=== PATIENT | female | born 1980 | race Caucasian/White ===

== ENCOUNTER 2018-10-02 21:33 | Inpatient (IN) | payer MEDICAID ==
[~2018-10-02] VITALS: Ht 157.5 cm; Wt 76.1 kg
[~2018-10-02 21:33] MED LIST: LITH300C3 PO; MULT-29 PO; VENL-67 PO
[2018-10-02 23:10] VITALS: BP 140/97
[2018-10-02] MEDS ORDERED: PNEUMOCOCCAL VACCINE POLYVALENT 0.5 ML VIAL [PPSV23] IM ONE (23:45)
[2018-10-03] VITALS (12 sets, daily range): BP systolic 112–133; BP diastolic 68–87
[2018-10-03] MEDS: LORazepam 2 MG TABLET PO PRN (00:35)
[2018-10-03] MEDS: HALOPERIDOL 5 MG TABLET PO PRN (01:13)
[2018-10-03 08:29] LABS: BASOPHILS % (AUTO) 0.3 % (0.0-2.0); EOSINOPHILS % (AUTO) 0.7 % (1.0-6.0); HEMOGLOBIN 12.7 g/dL (12.0-16.0); LYMPHOCYTES # (AUTO) 1.6 K/uL (1.0-4.8); LYMPHOCYTES % (AUTO) 22.9 % (22.0-44.0); MEAN CORPUSCULAR HEMOGLOBIN 32.9 pg (26.0-34.0); MEAN CORPUSCULAR HGB CONC 35.4 G/dL (31.0-37.0); MEAN CORPUSCULAR VOLUME 93 fL (80-100); MONOCYTES # (AUTO) 0.6 K/uL (0.1-1.0); MONOCYTES % (AUTO) 8.1 % (2.0-9.0); NEUTROPHILS # (AUTO) 4.8 K/uL (1.8-7.7); PLATELET COUNT (AUTO) 207 K/uL (150-450); RED BLOOD CELL COUNT(AUTO) 3.87 MIL/uL (4.00-5.20); RED CELL DISTRIBUTION WIDTH 14.8 % (11.5-14.5)
[2018-10-03 08:43] LABS: HEMOGLOBIN A1C 5.1 % (4.5-6.2)
[2018-10-03 09:04] LABS: ALANINE AMINOTRANSFERASE 50 U/L (12-78); ALBUMIN 2.9 g/dL (3.4-5.0); ALKALINE PHOSPHATASE 112 U/L (46-116); ANION GAP 8 mmol/L (8-16); ASPARTATE AMINOTRANSFERASE 36 U/L (15-37); BILIRUBIN,TOTAL 0.5 mg/dL (0.1-1.0); CALCIUM, TOTAL 8.9 mg/dL (8.8-10.5); CARBON DIOXIDE 29 mmol/L (22-29); CHLORIDE 107 mmol/L (98-107); CHOL/HDL RATIO 2.6 (3.9-5.7); CHOLESTEROL 137 mg/dL (131-200); CREATININE 0.85 mg/dL (0.60-1.30); GLOMERULAR FILTR. RATE CALC > 60 mL/min (>60); GLUCOSE,RANDOM 90 mg/dL (70-110); HCG,QUANTITATIVE < 1 mIU/mL (0-6); HDL CHOLESTEROL 53 mg/dL (40-60); LDL CHOL (CALC.) 57 mg/dL (0-130); POTASSIUM 3.2 mmol/L (3.5-5.1); SODIUM SERUM 144 mmol/L (136-145); THYROID STIMULATING HORMONE 1.93 uIU/mL (0.36-3.74); TOTAL PROTEIN, SERUM 5.5 g/dL (6.4-8.2); TRIGLYCERIDES 134 mg/dL (15-150); UREA NITROGEN, BLOOD 10 mg/dL (7-18)
[2018-10-03] MEDS ORDERED: ONDANSETRON HCL 4 MG TABLET PO PRN (10:00)
[2018-10-03] MEDS ORDERED: MAGNESIUM HYDROXIDE SUSPENSION 30 ML UDCUP PO PRN (10:00)
[2018-10-03] MEDS ORDERED: LOPERAMIDE HCL 2 MG CAPSULE PO PRN (10:00)
[2018-10-03] MEDS ORDERED: CloNIDine HCL 0.1 MG TABLET PO PRN (10:00)
[2018-10-03] MEDS ORDERED: PETROLATUM,WHITE 28 GM JELLY TP PRN (10:00)
[2018-10-03] MEDS ORDERED: ALBUTEROL SULFATE HFA 90 MCG/PUFF 8 GM INHALER IH PRN (10:00)
[2018-10-03] MEDS ORDERED: BENZOCAINE/MENTHOL LOZENGE MM PRN (10:00)
[2018-10-03] MEDS ORDERED: MAG HYDROX/AL HYDROX/SIMETH ES 30 ML SUSPENSION UDCUP PO PRN (10:00)
[2018-10-03] MEDS ORDERED: POTASSIUM CHLORIDE 20 MEQ ER TABLET PO ONE (10:30)
[2018-10-03] MEDS: IBUPROFEN 600 MG TABLET PO PRN ×2 (12:11→20:48)
[2018-10-03] MEDS: DULoxetine HCL 20 MG CAPSULE PO SCH (13:39)
[2018-10-03] MEDS: ZOLPIDEM TARTRATE 10 MG TABLET PO PRN (20:48)
[2018-10-03] MEDS: HALOPERIDOL 10 MG TABLET PO SCH (21:18)
[2018-10-04 00:43] VITALS: BP 127/80
[2018-10-04 01:30] VITALS: BP 132/68
[2018-10-04 05:30] VITALS: BP 140/85
[2018-10-04 08:28] VITALS: BP 136/78
[2018-10-04] MEDS: MULTIVITAMINS WITH MINERALS, THERAPEUTIC TABLET PO SCH (08:57)
[2018-10-04] MEDS: DOCUSATE SODIUM 100 MG CAPSULE PO SCH (08:57)
[2018-10-04] MEDS: OMEPRAZOLE 20 MG CAPSULE PO SCH (08:57)
[2018-10-04] MEDS: DULoxetine HCL 20 MG CAPSULE PO SCH (09:27)
[2018-10-04] MEDS: LORazepam 2 MG TABLET PO PRN (09:46)
[2018-10-04] MEDS: HALOPERIDOL 5 MG TABLET PO PRN (09:46)
[2018-10-04] MEDS ORDERED: POTASSIUM CHLORIDE 20 MEQ ER TABLET PO ONE (12:45)
[2018-10-04 16:01] VITALS: BP 142/73
[2018-10-04] MEDS: HALOPERIDOL 10 MG TABLET PO SCH (20:58)
[2018-10-05 01:10] VITALS: BP 121/91
[2018-10-05 08:10] VITALS: BP 117/63
[2018-10-05] MEDS: MULTIVITAMINS WITH MINERALS, THERAPEUTIC TABLET PO SCH (08:24)
[2018-10-05] MEDS: DOCUSATE SODIUM 100 MG CAPSULE PO SCH (08:24)
[2018-10-05] MEDS: DULoxetine HCL 20 MG CAPSULE PO SCH (08:24)
[2018-10-05] MEDS: OMEPRAZOLE 20 MG CAPSULE PO SCH (08:24)
[2018-10-05] MEDS: LORazepam 2 MG TABLET PO PRN (10:31)
[2018-10-05 16:44] VITALS: BP 125/75
[2018-10-05] MEDS: HALOPERIDOL 10 MG TABLET PO SCH (20:03)
[2018-10-06] MEDS: MULTIVITAMINS WITH MINERALS, THERAPEUTIC TABLET PO SCH (08:24)
[2018-10-06] MEDS: DULoxetine HCL 20 MG CAPSULE PO SCH (08:24)
[2018-10-06] MEDS: OMEPRAZOLE 20 MG CAPSULE PO SCH (08:24)
[2018-10-06] MEDS: DOCUSATE SODIUM 100 MG CAPSULE PO SCH (08:24)
[2018-10-06 08:35] VITALS: BP 108/74
[2018-10-06] MEDS: LORazepam 2 MG TABLET PO PRN ×2 (08:51→17:55)
[2018-10-06] MEDS: ACETAMINOPHEN 325 MG TABLET PO PRN (12:16)
[2018-10-06 16:00] VITALS: BP 114/63
[2018-10-06] MEDS: ZOLPIDEM TARTRATE 10 MG TABLET PO PRN (20:02)
[2018-10-06] MEDS: BACITRACIN 28.4 GM OINTMENT TP PRN (20:02)
[2018-10-06] MEDS: HALOPERIDOL 10 MG TABLET PO SCH (20:02)
[2018-10-06] MEDS: IBUPROFEN 600 MG TABLET PO PRN (20:54)
[2018-10-06 20:55] VITALS: BP 122/72
[2018-10-06] MEDS: CEPHALEXIN MONOHYDRATE 500 MG CAPSULE PO SCH (21:50)
[2018-10-07] VITALS (7 sets, daily range): BP systolic 113–129; BP diastolic 64–88
[2018-10-07] MEDS: BACITRACIN 28.4 GM OINTMENT TP PRN (05:03)
[2018-10-07] MEDS: IBUPROFEN 600 MG TABLET PO PRN ×3 (05:03→17:42)
[2018-10-07] MEDS: MULTIVITAMINS WITH MINERALS, THERAPEUTIC TABLET PO SCH (09:40)
[2018-10-07] MEDS: DOCUSATE SODIUM 100 MG CAPSULE PO SCH (09:40)
[2018-10-07] MEDS: DULoxetine HCL 20 MG CAPSULE PO SCH (09:40)
[2018-10-07] MEDS: OMEPRAZOLE 20 MG CAPSULE PO SCH (09:40)
[2018-10-07] MEDS: CEPHALEXIN MONOHYDRATE 500 MG CAPSULE PO SCH ×4 (10:10→20:06)
[2018-10-07] MEDS: LORazepam 2 MG TABLET PO PRN (10:38)
[2018-10-07 11:09] LABS: APPEARANCE,URINE CLOUDY (CLEAR); BILIRUBIN,URINE NEGATIVE (NEGATIVE); GLUCOSE, URINE (UA) NEGATIVE (NEGATIVE); KETONES,URINE NEGATIVE (NEGATIVE); LEUKOCYTE ESTERASE ,URINE NEGATIVE (NEGATIVE); NITRATE,URINE NEGATIVE (NEGATIVE); PH,URINE 6.5 (5.0-8.0); PROTEIN,URINE NEGATIVE (NEGATIVE); UROBILINOGEN,URINE 0.2 mg/dL (<=1.0)
[2018-10-07 11:19] LABS: BACTERIA,URINE Moderate /HPF (None Seen); CALCIUM OXALATE CRYSTALS,UR Rare /LPF (None Seen); OCCULT BLOOD,URINE SMALL (NEGATIVE); SQUAMOUS EPITHELIAL CELL,UR Moderate /LPF (None Seen); WBC,URINE None Seen /HPF (0-5)
[2018-10-07] MEDS: HALOPERIDOL 5 MG TABLET PO PRN (13:03)
[2018-10-07] MEDS: HALOPERIDOL 10 MG TABLET PO SCH (20:05)
[2018-10-07] MEDS: ACETAMINOPHEN 325 MG TABLET PO PRN (22:06)
[2018-10-08 00:43] VITALS: BP 116/72
[2018-10-08] MEDS: IBUPROFEN 600 MG TABLET PO PRN ×2 (00:45→10:35)
[2018-10-08 08:15] VITALS: BP 137/83
[2018-10-08] MEDS: OMEPRAZOLE 20 MG CAPSULE PO SCH (09:11)
[2018-10-08] MEDS: MULTIVITAMINS WITH MINERALS, THERAPEUTIC TABLET PO SCH (09:11)
[2018-10-08] MEDS: DOCUSATE SODIUM 100 MG CAPSULE PO SCH (09:11)
[2018-10-08] MEDS: CEPHALEXIN MONOHYDRATE 500 MG CAPSULE PO SCH ×4 (09:12→23:24)
[2018-10-08] MEDS: HALOPERIDOL 5 MG TABLET PO PRN (09:12)
[2018-10-08] MEDS: DULoxetine HCL 20 MG CAPSULE PO SCH (09:12)
[2018-10-08] MEDS: LORazepam 2 MG TABLET PO PRN (09:12)
[2018-10-08] MEDS ORDERED: HYDROCODONE/ACETAMINOPHEN 5-325 MG TABLET PO ONE (12:45)
[2018-10-08 20:59] VITALS: BP 126/77
[2018-10-08] MEDS: HALOPERIDOL 10 MG TABLET PO SCH (21:00)
[2018-10-08] MEDS: ZOLPIDEM TARTRATE 10 MG TABLET PO PRN (21:13)
[2018-10-08] MEDS: SULFAMETHOX/TRIMETH DS 800-160 MG/TABLET PO SCH (23:24)
[2018-10-09 00:22] VITALS: BP 118/78
[2018-10-09 02:04] VITALS: BP 124/96
[2018-10-09] MEDS: IBUPROFEN 600 MG TABLET PO PRN ×2 (02:07→08:50)
[2018-10-09] MEDS: OMEPRAZOLE 20 MG CAPSULE PO SCH (08:12)
[2018-10-09] MEDS: MULTIVITAMINS WITH MINERALS, THERAPEUTIC TABLET PO SCH (08:12)
[2018-10-09] MEDS: DOCUSATE SODIUM 100 MG CAPSULE PO SCH (08:12)
[2018-10-09] MEDS: CEPHALEXIN MONOHYDRATE 500 MG CAPSULE PO SCH ×4 (08:13→20:01)
[2018-10-09] MEDS: DULoxetine HCL 20 MG CAPSULE PO SCH (08:13)
[2018-10-09] MEDS: SULFAMETHOX/TRIMETH DS 800-160 MG/TABLET PO SCH ×2 (08:13→16:03)
[2018-10-09 08:19] VITALS: BP 122/64
[2018-10-09] MEDS: LORazepam 2 MG TABLET PO PRN ×3 (08:51→17:23)
[2018-10-09] MEDS: HALOPERIDOL 5 MG TABLET PO PRN (08:51)
[2018-10-09 16:09] VITALS: BP 118/78
[2018-10-09 17:20] VITALS: BP 121/75
[2018-10-09] MEDS: KETOROLAC TROMETHAMINE 30 MG/ML VIAL IM PRN (17:20)
[2018-10-09] MEDS: HALOPERIDOL 10 MG TABLET PO SCH (20:02)
[2018-10-10 06:45] VITALS: BP 122/86
[2018-10-10 08:16] VITALS: BP 114/71
[2018-10-10] MEDS: SULFAMETHOX/TRIMETH DS 800-160 MG/TABLET PO SCH ×2 (08:18→16:11)
[2018-10-10] MEDS: DULoxetine HCL 20 MG CAPSULE PO SCH (08:18)
[2018-10-10] MEDS: DOCUSATE SODIUM 100 MG CAPSULE PO SCH (08:18)
[2018-10-10] MEDS: OMEPRAZOLE 20 MG CAPSULE PO SCH (08:18)
[2018-10-10] MEDS: CEPHALEXIN MONOHYDRATE 500 MG CAPSULE PO SCH ×4 (08:18→20:07)
[2018-10-10] MEDS: MULTIVITAMINS WITH MINERALS, THERAPEUTIC TABLET PO SCH (08:18)
[2018-10-10] MEDS: LORazepam 2 MG TABLET PO PRN ×3 (08:46→17:25)
[2018-10-10] MEDS: HALOPERIDOL 5 MG TABLET PO PRN ×2 (08:46→12:24)
[2018-10-10 10:30] VITALS: BP 118/68
[2018-10-10] MEDS: KETOROLAC TROMETHAMINE 30 MG/ML VIAL IM PRN (10:34)
[2018-10-10 16:01] VITALS: BP 119/68
[2018-10-10] MEDS: HALOPERIDOL 10 MG TABLET PO SCH (20:08)
[2018-10-11 00:30] VITALS: BP 110/60
[2018-10-11 08:01] VITALS: BP 106/66
[2018-10-11] MEDS: HALOPERIDOL 5 MG TABLET PO PRN ×2 (08:25→12:33)
[2018-10-11] MEDS: MULTIVITAMINS WITH MINERALS, THERAPEUTIC TABLET PO SCH (08:25)
[2018-10-11] MEDS: DULoxetine HCL 20 MG CAPSULE PO SCH (08:25)
[2018-10-11] MEDS: DOCUSATE SODIUM 100 MG CAPSULE PO SCH (08:26)
[2018-10-11] MEDS: LORazepam 2 MG TABLET PO PRN ×2 (08:27→12:33)
[2018-10-11] MEDS: KETOROLAC TROMETHAMINE 30 MG/ML VIAL IM PRN (08:27)
[2018-10-11] MEDS: SULFAMETHOX/TRIMETH DS 800-160 MG/TABLET PO SCH ×2 (08:27→16:20)
[2018-10-11] MEDS: OMEPRAZOLE 20 MG CAPSULE PO SCH (08:27)
[2018-10-11] MEDS: CEPHALEXIN MONOHYDRATE 500 MG CAPSULE PO SCH ×4 (08:27→20:46)
[2018-10-11 16:01] VITALS: BP 107/66
[2018-10-11] MEDS: HALOPERIDOL 10 MG TABLET PO SCH (20:46)
[2018-10-12 00:47] VITALS: BP 110/68
[2018-10-12] MEDS ORDERED: DULO20CA30 PO (01:59)
[2018-10-12] MEDS ORDERED: HALO10 PO (01:59)
[2018-10-12] MEDS ORDERED: OMEP20 PO (06:26)
[2018-10-12] MEDS ORDERED: SULF1TAB42 PO (06:26)
[2018-10-12] MEDS ORDERED: DSS100 PO (06:26)
[2018-10-12] MEDS ORDERED: MULT-1239 PO (06:26)
[2018-10-12] MEDS ORDERED: CEPH500 PO (06:26)
[2018-10-12] MEDS: CEPHALEXIN MONOHYDRATE 500 MG CAPSULE PO SCH (07:22)
[2018-10-12] MEDS: SULFAMETHOX/TRIMETH DS 800-160 MG/TABLET PO SCH (07:22)
== END 2018-10-12 07:45 | disposition home or self-care (01) | DRG 750 ==
LOC: EDSTATUS 22:53 → B2S 23:05
DX: F25.1 Schizoaffective disorder, depressive type (principal); R45.851 Suicidal ideations; Z59.0 Homelessness; E03.9 Hypothyroidism, unspecified; E78.5 Hyperlipidemia, unspecified; E87.6 Hypokalemia; F12.10 Cannabis abuse, uncomplicated; F15.10 Other stimulant abuse, uncomplicated; F41.9 Anxiety disorder, unspecified; G47.00 Insomnia, unspecified; I10 Essential (primary) hypertension; Z79.899 Other long term (current) drug therapy; Z91.5 Personal history of self-harm
CPT/HCPCS: 83036; 84132; 84439; 84443; 87086; J1885

== ENCOUNTER 2020-08-11 18:02 | Inpatient (IN) | payer MEDICAID, OTHER ==
[~2020-08-11] VITALS: Ht 157.5 cm; Wt 74.6 kg
[~2020-08-11 18:02] MED LIST changes: +CEPH500C3 PO; +DSS100 PO; +DULO20CA27 PO; +HALO10 PO; -LITH300C3 PO; +MULT-1239 PO; -MULT-29 PO; +OMEP20 PO; +SULF1TAB42 PO; -VENL-67 PO
[2020-08-11 21:11] LABS: COVID AG,FIA SOURCE NASOPHARYNGEAL
[2020-08-11 21:49] LABS: BASOPHILS % (AUTO) 0.5 % (0.0-2.0); EOSINOPHILS % (AUTO) 0.7 % (1.0-6.0); HEMATOCRIT 42.8 % (36-46); HEMOGLOBIN 14.6 g/dL (12.0-16.0); LYMPHOCYTES # (AUTO) 1.2 K/uL (1.0-4.8); LYMPHOCYTES % (AUTO) 16.4 % (22.0-44.0); MEAN CORPUSCULAR HEMOGLOBIN 33.3 pg (26.0-34.0); MEAN CORPUSCULAR HGB CONC 34.1 G/dL (31.0-37.0); MEAN CORPUSCULAR VOLUME 98 fL (80-100); MONOCYTES # (AUTO) 0.3 K/uL (0.1-1.0); MONOCYTES % (AUTO) 4.3 % (2.0-9.0); NEUTROPHILS # (AUTO) 5.9 K/uL (1.8-7.7); NEUTROPHILS % (AUTO) 78.1 % (40.0-70.0); PLATELET COUNT (AUTO) 263 K/uL (150-450); RED BLOOD CELL COUNT(AUTO) 4.39 MIL/uL (4.00-5.20); RED CELL DISTRIBUTION WIDTH 14.7 % (11.5-14.5)
[2020-08-11] MEDS ORDERED: HALOPERIDOL 5 MG TABLET PO ONE (22:00)
[2020-08-11] MEDS ORDERED: DiphenhydrAMINE HCL 50 MG CAPSULE PO ONE (22:00)
[2020-08-11] MEDS ORDERED: LORazepam 2 MG TABLET PO ONE (22:00)
[2020-08-11 22:28] LABS: ANION GAP 13 mmol/L (8-16); CALCIUM, TOTAL 8.8 mg/dL (8.8-10.5); CARBON DIOXIDE 25 mmol/L (22-29); CHLORIDE 106 mmol/L (98-107); CREATININE 0.76 mg/dL (0.60-1.30); GLOMERULAR FILTR. RATE CALC > 60 mL/min (>60); GLUCOSE,RANDOM 198 mg/dL (70-110); POTASSIUM 3.3 mmol/L (3.5-5.1); SODIUM SERUM 144 mmol/L (136-145); UREA NITROGEN, BLOOD 10 mg/dL (7-18)
[2020-08-11 22:42] LABS: ALANINE AMINOTRANSFERASE 42 U/L (12-78); ALBUMIN 3.2 g/dL (3.4-5.0); ALKALINE PHOSPHATASE 126 U/L (46-116); ASPARTATE AMINOTRANSFERASE 26 U/L (15-37); BILIRUBIN,TOTAL 0.1 mg/dL (0.1-1.0); HCG,QUANTITATIVE < 1 mIU/mL (0-6); TOTAL PROTEIN, SERUM 6.8 g/dL (6.4-8.2)
[2020-08-11 23:17] LABS: AMPHET/METH SCREEN,URINE POSITIVE (NEGATIVE); BARBITURATE SCREEN, URINE NEGATIVE (NEGATIVE); BENZODIAZEPINES SCREEN,URINE POSITIVE (NEGATIVE); CANNABINOID SCREEN,URINE POSITIVE (NEGATIVE); COCAINE SCREEN,URINE POSITIVE (NEGATIVE); METHADONE SCREEN, URINE NEGATIVE (NEGATIVE); OPIATE SCREEN,URINE NEGATIVE (NEGATIVE); PHENCYCLIDINE SCREEN,URINE NEGATIVE (NEGATIVE)
[2020-08-12] VITALS (10 sets, daily range): BP systolic 106–142; BP diastolic 62–92
[2020-08-12] MEDS ORDERED: PNEUMOCOCCAL VACCINE POLYVALENT 0.5 ML VIAL [PPSV23] IM ONE (02:45)
[2020-08-12] MEDS ORDERED: INFLUENZA VIRUS VACCINE QVS 2020-21 (6MO+)/PF 60 MCG/0.5 ML SYRINGE IM ONE (02:45)
[2020-08-12] MEDS ORDERED: ALBUTEROL SULFATE HFA 90 MCG/PUFF 8 GM INHALER IH PRN (06:45)
[2020-08-12] MEDS ORDERED: LOPERAMIDE HCL 2 MG CAPSULE PO PRN (06:45)
[2020-08-12] MEDS ORDERED: MAGNESIUM HYDROXIDE SUSPENSION 30 ML UDCUP PO PRN (06:45)
[2020-08-12] MEDS ORDERED: MAG HYDROX/AL HYDROX/SIMETH ES 30 ML SUSPENSION UDCUP PO PRN (06:45)
[2020-08-12] MEDS ORDERED: DOCUSATE SODIUM 100 MG CAPSULE PO PRN (06:45)
[2020-08-12] MEDS ORDERED: GuaiFENesin/D-METHORPHAN [SUGAR-FREE] 200-20MG/10 ML SYRUP UDCUP PO PRN (06:45)
[2020-08-12] MEDS ORDERED: ONDANSETRON HCL 4 MG TABLET PO PRN (06:45)
[2020-08-12] MEDS ORDERED: CloNIDine HCL 0.1 MG TABLET PO PRN (06:45)
[2020-08-12] MEDS ORDERED: PETROLATUM,WHITE 28 GM JELLY TP PRN (06:45)
[2020-08-12 08:40] LABS: CHOL/HDL RATIO 2.5 (3.9-5.7); FREE T4 (FREE THYROXINE) 1.09 ng/dL (0.76-1.46); THYROID STIMULATING HORMONE 1.59 uIU/mL (0.36-3.74)
[2020-08-12] MEDS: BACITRACIN 28 GM OINTMENT TP SCH ×2 (09:03→16:40)
[2020-08-12] MEDS: LORazepam 2 MG TABLET PO PRN (16:47)
[2020-08-12] MEDS: QUEtiapine FUMARATE 100 MG TABLET PO PRN (16:47)
[2020-08-12] MEDS ORDERED: POTASSIUM CHLORIDE 20 MEQ ER TABLET PO ONE (17:00)
[2020-08-12] MEDS: RisperiDONE 1 MG TABLET PO SCH (20:46)
[2020-08-13] VITALS (8 sets, daily range): BP systolic 110–132; BP diastolic 69–93
[2020-08-13] MEDS: BACITRACIN 28 GM OINTMENT TP SCH ×2 (08:21→16:09)
[2020-08-13] MEDS: RisperiDONE 1 MG TABLET PO SCH (08:21)
[2020-08-13] MEDS: ACETAMINOPHEN 325 MG TABLET PO PRN (14:24)
[2020-08-13] MEDS: LORazepam 2 MG TABLET PO PRN ×2 (14:24→23:54)
[2020-08-13] MEDS: QUEtiapine FUMARATE 100 MG TABLET PO PRN ×2 (16:09→23:54)
[2020-08-13] MEDS: RisperiDONE 2 MG TABLET PO SCH (20:36)
[2020-08-13] MEDS: ZOLPIDEM TARTRATE 10 MG TABLET PO PRN (22:12)
[2020-08-14] VITALS: BP 133/85
[2020-08-14] MEDS: LINACLOTIDE 145 MCG CAPSULE PO SCH (06:54)
[2020-08-14 08:24] VITALS: BP 105/69
[2020-08-14 08:30] VITALS: BP 105/69
[2020-08-14] MEDS: RisperiDONE 2 MG TABLET PO SCH ×2 (08:39→20:14)
[2020-08-14] MEDS: BACITRACIN 28 GM OINTMENT TP SCH ×2 (08:39→16:06)
[2020-08-14] MEDS: LORazepam 2 MG TABLET PO PRN ×3 (08:39→21:20)
[2020-08-14 16:05] VITALS: BP 110/70
[2020-08-14 16:12] VITALS: BP 110/70
[2020-08-14] MEDS: QUEtiapine FUMARATE 100 MG TABLET PO PRN (18:33)
[2020-08-14] MEDS: ZOLPIDEM TARTRATE 10 MG TABLET PO PRN (20:14)
[2020-08-15 01:10] VITALS: BP 116/76
[2020-08-15 01:16] VITALS: BP 116/76
[2020-08-15] MEDS: LINACLOTIDE 145 MCG CAPSULE PO SCH (06:45)
[2020-08-15 08:13] VITALS: BP 140/77
[2020-08-15] MEDS: LORazepam 2 MG TABLET PO PRN ×2 (08:17→13:27)
[2020-08-15] MEDS: IBUPROFEN 400 MG TABLET PO PRN (08:17)
[2020-08-15] MEDS: RisperiDONE 2 MG TABLET PO SCH ×2 (08:17→20:08)
[2020-08-15] MEDS: BACITRACIN 28 GM OINTMENT TP SCH ×2 (08:17→16:15)
[2020-08-15 09:07] VITALS: BP 127/69
[2020-08-15 16:18] VITALS: BP 135/88
[2020-08-15] MEDS: NICOTINE 14 MG/24 HOUR PATCH TD PRN (17:45)
[2020-08-15 18:43] VITALS: BP 135/88
[2020-08-15] MEDS: ZOLPIDEM TARTRATE 10 MG TABLET PO PRN (20:09)
[2020-08-16 00:54] VITALS: BP 118/78
[2020-08-16 03:41] VITALS: BP 118/78
[2020-08-16] MEDS: LINACLOTIDE 145 MCG CAPSULE PO SCH (06:38)
[2020-08-16] MEDS: ACETAMINOPHEN 325 MG TABLET PO PRN (06:51)
[2020-08-16 08:13] VITALS: BP_SYST 115; BP_DIAS 69; BP_DIAS 79
[2020-08-16] MEDS: RisperiDONE 2 MG TABLET PO SCH ×2 (09:31→20:06)
[2020-08-16] MEDS: BACITRACIN 28 GM OINTMENT TP SCH ×2 (09:31→16:21)
[2020-08-16] MEDS: LORazepam 2 MG TABLET PO PRN ×3 (09:34→21:24)
[2020-08-16 10:37] VITALS: BP 115/69
[2020-08-16 16:09] VITALS: BP 111/67
[2020-08-16 16:24] VITALS: BP 111/67
[2020-08-16] MEDS: ZOLPIDEM TARTRATE 10 MG TABLET PO PRN (20:06)
[2020-08-17] VITALS: BP 118/72
[2020-08-17 03:32] VITALS: BP 116/78
[2020-08-17] MEDS: LINACLOTIDE 145 MCG CAPSULE PO SCH (06:39)
[2020-08-17] MEDS: LORazepam 2 MG TABLET PO PRN ×4 (06:45→19:28)
[2020-08-17 08:30] VITALS: BP 120/78
[2020-08-17] MEDS: BACITRACIN 28 GM OINTMENT TP SCH ×2 (08:44→16:22)
[2020-08-17] MEDS: RisperiDONE 2 MG TABLET PO SCH ×2 (08:44→19:28)
[2020-08-17] MEDS: QUEtiapine FUMARATE 100 MG TABLET PO PRN (13:37)
[2020-08-17] MEDS: NICOTINE 14 MG/24 HOUR PATCH TD PRN (14:41)
[2020-08-17 16:13] VITALS: BP 124/73
[2020-08-17] MEDS: ZOLPIDEM TARTRATE 10 MG TABLET PO PRN (22:04)
[2020-08-18 01:11] VITALS: BP 116/68
[2020-08-18] MEDS: LINACLOTIDE 145 MCG CAPSULE PO SCH (06:43)
[2020-08-18] MEDS: BACITRACIN 28 GM OINTMENT TP SCH ×2 (08:40→16:30)
[2020-08-18] MEDS: MULTIVITAMINS WITH MINERALS, THERAPEUTIC TABLET PO SCH (08:40)
[2020-08-18] MEDS: RisperiDONE 2 MG TABLET PO SCH ×2 (08:40→20:30)
[2020-08-18] MEDS: LORazepam 2 MG TABLET PO PRN ×3 (11:58→20:33)
[2020-08-18] MEDS: NICOTINE 14 MG/24 HOUR PATCH TD PRN (12:19)
[2020-08-18] MEDS: QUEtiapine FUMARATE 100 MG TABLET PO PRN ×2 (13:41→22:02)
[2020-08-18 16:20] VITALS: BP 106/60
[2020-08-18] MEDS: ACETAMINOPHEN 325 MG TABLET PO PRN (19:02)
[2020-08-18] MEDS: ZOLPIDEM TARTRATE 10 MG TABLET PO PRN (23:02)
[2020-08-19] MEDS: IBUPROFEN 400 MG TABLET PO PRN (00:28)
[2020-08-19 00:42] VITALS: BP 100/72
[2020-08-19] MEDS: LINACLOTIDE 145 MCG CAPSULE PO SCH (06:30)
[2020-08-19] MEDS ORDERED: RISP2TAB76 PO (07:53)
[2020-08-19 08:23] VITALS: BP 118/71
[2020-08-19] MEDS: BACITRACIN 28 GM OINTMENT TP SCH (09:12)
[2020-08-19] MEDS: MULTIVITAMINS WITH MINERALS, THERAPEUTIC TABLET PO SCH (09:12)
[2020-08-19] MEDS: RisperiDONE 2 MG TABLET PO SCH (09:12)
[2020-08-19] MEDS: NICOTINE 14 MG/24 HOUR PATCH TD PRN (11:30)
== END 2020-08-19 13:00 | disposition home or self-care (01) | DRG 750 ==
LOC: EMS 18:03 → B3A 22:00
DX: F25.0 Schizoaffective disorder, bipolar type (principal); R45.851 Suicidal ideations; Z91.5 Personal history of self-harm; Z59.0 Homelessness; F11.90 Opioid use, unspecified, uncomplicated; I10 Essential (primary) hypertension; E03.9 Hypothyroidism, unspecified; F10.10 Alcohol abuse, uncomplicated; Y90.9 Presence of alcohol in blood, level not specified; F12.10 Cannabis abuse, uncomplicated; F14.10 Cocaine abuse, uncomplicated; F15.10 Other stimulant abuse, uncomplicated; K21.9 Gastro-esophageal reflux disease without esophagitis; M19.90 Unspecified osteoarthritis, unspecified site; M54.9 Dorsalgia, unspecified; M41.9 Scoliosis, unspecified; E87.6 Hypokalemia; R73.9 Hyperglycemia, unspecified; E66.9 Obesity, unspecified; Z68.30 Body mass index [BMI] 30.0-30.9, adult; K58.9 Irritable bowel syndrome, unspecified; Z87.891 Personal history of nicotine dependence; R10.13 Epigastric pain; Z79.899 Other long term (current) drug therapy; F31.9 Bipolar disorder, unspecified; Z20.822 Contact with and (suspected) exposure to COVID-19; Z28.21 Immunization not carried out because of patient refusal
CPT/HCPCS: 83036; 84132; 84439; 84443; 87426; 99285; A9575; G0480

== ENCOUNTER 2024-02-17 11:50 | Emergency (ER) | payer MEDICAID, OTHER ==
[~2024-02-17] VITALS: Ht 154.9 cm; Wt 75.9 kg
[~2024-02-17 11:50] MED LIST changes: -CEPH500C3 PO; -DSS100 PO; -DULO20CA27 PO; -HALO10 PO; -MULT-1239 PO; -OMEP20 PO; +RISP2TAB76 PO; -SULF1TAB42 PO
[2024-02-17 12:05] VITALS: TEMP 97.5
[2024-02-17] MEDS: IBUPROFEN 600 MG TABLET PO ONE (14:48)
[2024-02-17 15:28] VITALS: BP 133/82; PULSE 76; RESP 16; O2SAT 99
== END 2024-02-17 15:28 | disposition home or self-care (01) ==
LOC: EMS 11:53
DX: S86.112A Strain of other muscle(s) and tendon(s) of posterior muscle group at lower leg level, left leg, initial encounter (principal); X50.1XXA Overexertion from prolonged static or awkward postures, initial encounter; Y93.68 Activity, volleyball (beach) (court); Y92.89 Other specified places as the place of occurrence of the external cause; Y99.8 Other external cause status
CPT/HCPCS: 99283